=== PATIENT | female | born 1930 | race Caucasian/White ===

== ENCOUNTER 2018-05-11 07:08 | Emergency (ER) | payer MEDICARE, MEDICAID ==
--- OUTSIDE RECORDS SUMMARY | 2018-05-11 07:18 | XMS REPORT | Continuity of Care Document ---
:1930 External Reference #:[id number] Author Name Caron Neal Care Team Providers Name Role Phone Christina Pérez RPAC Care Team Information Crystal Calibrator Unavailable Christina Pérez RPAC Primary Care Physician Unavailable Payers Date Identification Numbers Payment Provider Subscriber Policy Number: [id number] Medicare Jenna Franco PayID: [id number] [address] [place] [address] Policy Number: [id number] Medicaid Jenna Franco Group Name: 2 1 [address] PayID: [id number] [place] [address] Advance Directives Description No Information Available Problems Date Description Provider Status Onset: 09/08/2010 Mitral valve disorder Constantino Burleson M.D., [facility]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 Onset: 10/21/2012 Dyspnea Constantino Burleson M.D., Active FAC Onset: 10/01/2013 Malaise and fatigue Constantino Burleson M.D., Active [facility] Onset: 04/28/2015 Essential hypertension Kae 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, 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, 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 Onset: 12/28/2016 Osteoporosis Christina Pérez RPAC Active Onset: 12/28/2016 Hyperlipidemia Christina Pérez RPAC Active Onset: 12/28/2016 Degenerative joint disease Christina Pérez RPAC Active involving multiple joints Note: cervical/lumbar spine Onset: 12/28/2016 Polyp of colon Christina Pérez RPAC Active Note: tubular adenoma 2012 Onset: 05/21/2017 Pruritus of skin Christina Pérez RPAC Active Onset: 08/28/2017 Neck pain Christina Pérez RPAC Active Onset: 02/21/2018 Chest pain Constantino Burleson M.D., [facility] Active Onset: 02/21/2018 Bradycardia, unspecified Constantino Burleson M.D., [facility] Active Onset: 09/08/2010 Nausea and vomiting Alfredito Cannon MD, PhD Resolved Resolved: 12/28/2016 Onset: 12/30/2012 Cough Constantino Burleson M.D., [facility] Resolved Resolved: 12/28/2016 Family History Date Family Member(s) Observation Comments General No known family history of CAD. 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 every day Hydrocortisone 05/22/19 Active Cream 2.5% 30gm thin L29.9 Davies, 18 layer Jose Luis, three-fou M.D. r times a day for itchy rash Proair HFA 01/30/20 Active Aerosol 108(90Bas 36uni 1-2 Davies, 17 e) ts inhalatio Jose Luis, mcg/Act ns every M.D. 4 hours as needed Losartan 12/06/19 Active Tablets 50mg 90tab take one I10 Davidenko Potassium 16 s tablet by Constantino M.D., every day [facility] Hydrochlorothiaz 10/24/19 Active Tablets 25mg 90tab take one Davidenko clay 15 s tablet by , Constantino Frances M.D., every day [facility] Docusate Sodium Active Capsules 100mg 270ca Take 2-3 Davies, 00 ps Capsules Jose Luis, By Mouth M.D. Once Daily With Fiber Ceral Alendronate Active Tablets 70mg 4tabs 1 tab Davies, Sodium 00 every Jose Luis, week in M.D. in the morning wth 8 oz water Aspir-Low Active Tablets DR 81mg 1 po qd Unknown 00 Calcium 500/D Active Tablets 500-200mg 180ta 1 by Davies, 00 -Unit bs mouth Jose Luis, twice a M.D. day Advil Active Capsules 200mg 1 cap by Unknown 00 mouth with meals, may take 4 per day Vitamin D3 Active Capsules 2000Unit 1 by Unknown 00 mouth every day Vesicare Active Tablets 5mg 90tab take one Davies, 00 s tablet by Jose Luis mouth M.D. every day Omeprazole Active Capsules 20mg 90cap Take One Davies, 00 DR s Capsule Jose Luis, By Mouth M.D. Every Day Atorvastatin Active Tablets 20mg 90tab take one Davies, Calcium 00 s tablet by lul Amaya M.D. every day U27-Bxxker Active Chewtabs 1mg 1 tab by Unknown 00 mouth every day wc Amlodipine 07/13/19 Hx Tablets 10mg 1/2 by Sarah Beth Besylate 18 - mouth , Constantino 08/29/19 every day M.Kalli, 18 FACC Diphenhydramine 05/22/19 Hx Capsules 25mg 30cap take one L29.9 Davies, HCL 18 - s capsule Jose Luis, 08/29/19 by mouth M.DShree 18 every night before bedtime to decrease night time itching Rollator 01/04/20 Hx Misc Walker 1unit For daily Davies, 17 - W/Brake & s use....dx Jose Luis, 02/01/20 Seat : M 47.9 M.DShree 17 Physical Therapy 12/30/19 Hx Continue M47.9 Davies, 17 - PT. 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, unsteady gait Hydrochlorothiaz 10/22/19 Hx Tablets 25mg 90tab 1 tab by Sarah Beth clay 13 - s mouth , Constantino 10/24/19 every day M., M.D., 15 FACC Zofran Odt 09/09/19 Hx Tablets 4mg 30tab po prn Cannon, 11 - Dispers s Alfredito Rust, Unknown MD, PhD Pravastatin Hx Tablets 80mg 90tab 1 po qd Unknown Sodium - s Unknown Acetaminophen Hx Capsules 500mg 2 po tid Unknown 00 - prn Unknown Naproxen Sodium Hx Tablets 550mg 1 po bid Unknown 00 - prn Unknown Amlodipine Hx Tablets 10mg 90tab 1 by Samson, Besylate s mouth Jose Luis, 07/13/19 every day MGonsalo 18 Albuterol Hx Nebulizer 1.25mg/3M 2 puffs Unknown Sulfate 00 - L q4h prn Unknown Alendronate Hx Tablets 35mg 1 po Unknown Sodium 00 - qweek Unknown Hydrochlorothiaz Hx Tablets 12.5mg 30tab 1 po qd Unknown clay 00 - s 10/22/19 13 Spiriva Hx Capsules 18mcg 1 po qd Unknown Handihaler 00 - Unknown Vitamin D Hx Capsules 1000Unit 60cap 1 po qd Unknown - s Unknown Enablex Hx Tablets ER 15mg 1 po qd Unknown 00 - 24HR Unknown Oysco 500+D Hx Tablets 500-200mg po qd Unknown 00 - -Unit Unknown Nexium Hx Capsules 40mg 90cap 1 po qd Unknown - s Unknown Terbinafine HCL Hx Tablets 250mg po qday Unknown 00 - Unknown Oysco 500+D Hx Chewtabs 500-600mg 1 qd Unknown 00 - -Unit Unknown Vitamin D3 Hx Capsules 1000Units 2po every , day Jose Luis, 01/30/20 Kalli 17 Ventolin HFA Hx Aerosol 108(90Bas prn Unknown - e) Unknown mcg/Act Proair HFA Hx Aerosol 108(90Bas 3unit 2 puffs Unknown - e) s every 4 12/30/19 mcg/Act hours as 17 needed, rare use with illness Naproxen DR Hx Tablets DR 500mg 1 by Unknown 00 - mouth 12/30/19 once a 17 day with food. Immunizations CPT Code Status Date Vaccine Lot # U-Flu Given 11/07/2017 Influenza,Unspecified Vital Signs Date Vital Result Comment 02/21/2018 11:50am BP Systolic Sitting Left Arm 142 mmHg BP Diastolic Sitting Left Arm 82 mmHg Heart Rate 62 /min Respiratory Rate 18 /min Weight 128.00 lb O2 % BldC Oximetry 97 % Ora 01/14/2018 2:06pm BP Systolic Sitting Right Arm 138 mmHg BP Diastolic Sitting Right Arm 72 mmHg Heart Rate 57 /min Respiratory Rate 18 /min Weight 126.00 lb O2 % BldC Oximetry 96 % Ora 12/03/2017 9:45am BP Systolic 142 mmHg BP Diastolic 72 mmHg Body Temperature 97.2 F Heart Rate 108 /min Respiratory Rate 20 /min Weight 126.00 lb O2 % BldC Oximetry 96 % Ra Pain Level 9 neck and back 08/28/2017 10:29am BP Systolic Sitting Right Arm 158 mmHg BP Diastolic Sitting Right Arm 68 mmHg Body Temperature 98.5 F Heart Rate 55 /min Respiratory Rate 18 /min Height 66 inches 5'6" Weight 125.00 lb BMI (Body Mass Index) 20.2 kg/m2 BSA (Body Surface Area) 1.64 m2 Bayard body weight in kilograms 59 kg O2 % BldC Oximetry 98 % ra 07/12/2017 11:24am BP Systolic Sitting Left Arm 120 mmHg BP Diastolic Sitting Left Arm 64 mmHg Heart Rate 64 /min Respiratory Rate 14 /min Height 66 inches 5'6" Weight 118.00 lb BMI (Body Mass Index) 19.0 kg/m2 BSA (Body Surface Area) 1.60 m2 Bayard body weight in kilograms 59 kg 05/21/2017 3:30pm BP Systolic Sitting Right Arm 122 mmHg BP Diastolic Sitting Right Arm 64 mmHg Heart Rate 58 /min Height 66 inches 5'6" Weight 121.00 lb BMI (Body Mass Index) 19.5 kg/m2 BSA (Body Surface Area) 1.62 m2 Bayard body weight in kilograms 59 kg O2 % BldC Oximetry 97 % ra 01/29/2017 2:14pm BP Systolic 162 mmHg BP Diastolic 62 mmHg Heart Rate 69 /min Respiratory Rate 12 /min Height 66 inches 5'6" Weight 128.12 lb BMI (Body Mass Index) 20.7 kg/m2 BSA (Body Surface Area) 1.65 m2 Bayard body weight in kilograms 59 kg O2 % BldC Oximetry 82 % 01/10/2017 1:35pm BP Systolic Sitting Left Arm 146 mmHg BP Diastolic Sitting Left Arm 82 mmHg Heart Rate 80 /min Respiratory Rate 16 /min Height 66 inches 5'6" Weight 121.00 lb BMI (Body Mass Index) 19.5 kg/m2 BSA (Body Surface Area) 1.62 m2 Bayard body weight in kilograms 59 kg 12/29/2016 1:46pm BP Systolic Sitting Right Arm 134 mmHg BP Diastolic Sitting Right Arm 60 mmHg Heart Rate 58 /min Respiratory Rate 18 /min Height 66 inches 5'6" Weight 125.00 lb BMI (Body Mass Index) 20.2 kg/m2 BSA (Body Surface Area) 1.64 m2 Bayard body weight in kilograms 59 kg O2 % BldC Oximetry 96 % ra 07/06/2016 3:19pm BP Systolic Sitting Left Arm 140 mmHg BP Diastolic Sitting Left Arm 70 mmHg Heart Rate 60 /min Respiratory Rate 18 /min Height 66 inches 5'6" Weight 127.00 lb BMI (Body Mass Index) 20.5 kg/m2 BSA (Body Surface Area) 1.65 m2 Bayard body weight in kilograms 59 kg 01/03/2016 2:33pm BP Systolic Sitting Left Arm 156 mmHg BP Diastolic Sitting Left Arm 58 mmHg Heart Rate 66 /min Respiratory Rate 16 /min Height 66 inches 5'6" Weight 127.00 lb BMI (Body Mass Index) 20.5 kg/m2 BSA (Body Surface Area) 1.65 m2 12/06/2015 8:04am BP Systolic Sitting Left Arm 182 mmHg BP Diastolic Sitting Left Arm 74 mmHg Heart Rate 56 /min Height 66 inches 5'6" Weight 126.00 lb BMI (Body Mass Index) 20.3 kg/m2 BSA (Body Surface Area) 1.64 m2 06/03/2015 2:47pm BP Systolic Sitting Resting Right Arm 150 mmHg BP Diastolic Sitting Resting Right Arm 64 mmHg Heart Rate 62 /min Height 66 inches 5'6" Weight 124.00 lb BMI (Body Mass Index) 20.0 kg/m2 BSA (Body Surface Area) 1.63 m2 04/28/2015 2:50pm BP Systolic Sitting Right Arm 132 mmHg BP Diastolic Sitting Right Arm 70 mmHg Heart Rate 60 /min Respiratory Rate 16 /min Height 63.5 inches 5'3.50" Weight 128.00 lb BMI (Body Mass Index) 22.3 kg/m2 BSA (Body Surface Area) 1.61 m2 10/23/2014 1:14pm BP Systolic 154 mmHg BP Diastolic 76 mmHg Heart Rate 66 /min Respiratory Rate 18 /min Height 63.5 inches 5'3.50" Weight 124.12 lb BMI (Body Mass Index) 21.6 kg/m2 BSA (Body Surface Area) 1.59 m2 04/16/2014 3:09pm BP Systolic Sitting Right Arm 170 mmHg BP Diastolic Sitting Right Arm 70 mmHg Heart Rate 58 /min Respiratory Rate 20 /min Height 63.5 inches 5'3.50" Weight 131.00 lb BMI (Body Mass Index) 22.8 kg/m2 BSA (Body Surface Area) 1.62 m2 10/01/2013 10:08am BP Systolic Sitting Right Arm 124 mmHg BP Diastolic Sitting Right Arm 60 mmHg Heart Rate 64 /min Respiratory Rate 16 /min Height 63.5 inches 5'3.50" Weight 134.00 lb BMI (Body Mass Index) 23.4 kg/m2 BSA (Body Surface Area) 1.64 m2 07/01/2013 3:50pm BP Systolic Sitting Left Arm 144 mmHg BP Diastolic Sitting Left Arm 78 mmHg Heart Rate 66 /min Respiratory Rate 16 /min Height 63.5 inches 5'3.50" Weight 133.00 lb BMI (Body Mass Index) 23.2 kg/m2 BSA (Body Surface Area) 1.64 m2 12/30/2012 3:08pm BP Systolic Sitting Right Arm 132 mmHg BP Diastolic Sitting Right Arm 88 mmHg Heart Rate 60 /min Respiratory Rate 16 /min Height 63.5 inches 5'3.50" Weight 135.00 lb BMI (Body Mass Index) 23.5 kg/m2 BSA (Body Surface Area) 1.65 m2 10/21/2012 2:30pm BP Systolic Sitting Right Arm 184 mmHg BP Diastolic Sitting Right Arm 84 mmHg Heart Rate 57 /min Respiratory Rate 16 /min Height 63.5 inches 5'3.50" Weight 131.00 lb BMI (Body Mass Index) 22.8 kg/m2 BSA (Body Surface Area) 1.62 m2 09/13/2011 2:14pm BP Systolic Sitting Right Arm 142 mmHg BP Diastolic Sitting Right Arm 68 mmHg Heart Rate 64 /min Respiratory Rate 16 /min Height 63.5 inches 5'3.50" Weight 129.00 lb BMI (Body Mass Index) 22.5 kg/m2 09/13/2010 10:43am BP Systolic Sitting Left Arm 148 mmHg BP Diastolic Sitting Left Arm 84 mmHg Heart Rate 60 /min Respiratory Rate 14 /min Height 63.5 inches 5'3.50" Weight 132.00 lb BMI (Body Mass Index) 23.0 kg/m2 09/08/2010 10:54am BP Systolic Sitting Right Arm 196 mmHg BP Diastolic Sitting Right Arm 90 mmHg Heart Rate 68 /min regular Respiratory Rate 16 /min Height 63.5 inches 5'3.50" Weight 129.00 lb BMI (Body Mass Index) 22.5 kg/m2 06/17/2010 10:06am BP Systolic Sitting Left Arm 142 mmHg BP Diastolic Sitting Left Arm 70 mmHg Heart Rate 68 /min Irregular Respiratory Rate 16 /min Height 63.5 inches 5'3.50" Weight 134.00 lb BMI (Body Mass Index) 23.4 kg/m2 Results Test Date Facility Test Result H/L Range Note CBS 05/22/2017 [facility] White Blood 9.1 K/uL N 3.1-10.7 1 W/Automated [address] [place], [place] [id number] [phone] Red Blood Count 4.09 M/uL N 3.90-5.40 Hemoglobin 12.7 gm/dL N 11.6-15.8 Hematocrit 37.9 % N 36.0-46.1 Mean Cell Volume 92.7 fl N 80.9-99.0 Mean Corpuscular HGB 31.1 pg N 25.9-32.7 Mean Corpuscular HGB Conc 33.5 g/dL N 30.8-34.3 Platelet Count 202 K/uL N 155-360 Red Cell Distri Width SD 43.5 fl N 3-47 Red Cell Distri Width %CV 13.2 % N 11.7-14.4 Mean Platelet Volume 13.0 fL High 8.9-12.4 Neut% 49.3 % N 40.4-72.8 Lymph % 42.3 % High 20.0-42.0 Bell % 6.9 % N 4.3-13.2 Eo% 1.3 % N 0.0-6.6 Bas% 0.2 % N 0.0-1.1 Neut# 4.48 K/uL N 1.8-7.0 Lymph # 3.85 K/uL N 1.0-4.0 Bell # 0.63 K/uL N 0.3-0.9 Eos # 0.12 K/uL N 0.0-0.5 Baso # 0.02 K/uL N 0.0-0.1 Comprehensive Metabolic 05/21/2017 [facility] Glucose 89 mg/dL N 74-106 [address] [place] [address] [phone] BUN 19 mg/dL High 7-18 Creatinine 0.7 mg/dL N 0.6-1.3 Glom Filtration Rate, Estimate >60 mL/min >60 If >60 mL/min >60 3 BUN/Creat 27.1 ratio Sodium 140 mmol/L N 136-145 Potassium 4.4 mmol/L N 3.5-5.1 Chloride 105 mmol/L N 98-107 Carbon Dioxide 25 mmol/L N 21-32 Anion Gap 10 mEq/L N 8-16 Calcium 9.3 mg/dL N 8.5-10.1 Total Protein 7.8 g/dL N 6.4-8.2 Albumin 4.0 g/dL N 3.4-5.0 Globulin 3.8 g/dL N 1.9-4.3 Alb/Glob 1.1 ratio Bilirubin,Total 0.8 mg/dL N 0.2-1.0 Sgot/Ast 23 U/L N 15-37 SGPT/Alt 19 U/L N 12-78 Alkaline Phosphatase 55 U/L N 45-117 LDL Cholesterol Profile 05/21/2017 [facility] Cholesterol 149 mg/dL <[address] [place] [address] [phone] Triglycerides 90 mg/dL <150 5 HDL Cholesterol 59 mg/dL >40 6 LDL-Cholesterol 72 mg/dL < 100 7 Laboratory test 05/21/2017 [facility] Vitamin 42.0 30.0-100.0 [address] D,25-Hydroxy ng/[place] [address] [phone] Laboratory test 02/24/2014 [facility] Microalb/Creat See Note [address] Ratio,[place] [address] [phone] CBC 02/24/2014 [facility] White Blood 5.7 K/uL 3.1-10.[address] [place] [address] [phone] Red Blood Count 4.21 M/uL 3.90-5.40 Hemoglobin 12.8 gm/dL 11.6-15.8 Hematocrit 39.0 % 36.0-46.1 Mean Cell Volume 92.6 fl 80.9-99.0 Mean Corpuscular HGB 30.4 pg 25.9-32.7 Mean Corpuscular HGB Conc 32.8 g/dL 30.8-34.3 Platelet Count 189 K/uL 155-360 Red Cell Distri Width %CV 12.8 % 11.7-14.4 Mean Platelet Volume 12.8 fL High 8.9-12.4 LDL Cholesterol 02/24/2014 [facility] Cholesterol 136 mg/dL < 200 10 Profile [address] [place] [place] [address] [phone] Triglycerides 58 mg/dL < 150 11 HDL Cholesterol 58 mg/dL > 40 12 LDL-Cholesterol 66 mg/dL < 100 13 Comprehensive Metabolic 02/24/2014 [facility] Glucose 90 mg/dL 74-106 Panel [address] [place] [address] [phone] BUN 15 mg/dL 7-18 Creatinine 1.1 mg/dL 0.6-1.3 Glom Filtration Rate, Estimate 51 mL/min >60 If >60 mL/min >60 14 BUN/Creat 13.6 ratio Sodium 139 mmol/L 136-145 Potassium 4.4 mmol/L 3.5-5.1 Chloride 104 mmol/L 98-107 Carbon Dioxide 30 mmol/L 21-32 Anion Gap 9 mEq/L 8-16 Calcium 9.5 mg/dL 8.5-10.1 Total Protein 7.9 g/dL 6.4-8.2 Albumin 3.9 g/dL 3.4-5.0 Globulin 4.0 g/dL 1.9-4.3 Alb/Glob 1.0 ratio Bilirubin,Total 0.8 mg/dL 0.2-1.0 Sgot/Ast 18 U/L 15-37 SGPT/Alt 19 U/L 12-78 Alkaline Phosphatase 64 U/L 45-117 1 I10,L29.9,E78.5, 2 I10 L29.9 E78.5 3 Note: Persistent reduction for 3 months or more in an eGFR <60 mL/min/1.73 m2 defines CKD. Patients with eGFR values >/=60 mL/min/1.73 m2 may also have CKD if evidence of persistent proteinuria is present. The original MDRD equation for estimated GFR is not valid for patients less than 18 years of age. Additional information may be found at www.kdoqi.org. 4 Reference Guidelines*: Desirable: ........... < 200 mg/dL Borderline High: ..... 200-239 mg/dL High: ................ >=240 mg/dL * The National Cholesterol Education Program (NCEP) 5 Reference Guidelines*: Normal: ............. < 150 mg/dL Borderline High: .... 150-199 mg/dL High: ............... 200-499 mg/dL Very High: .......... > 500 mg/dL * Source: National Cholesterol Education Program (NCEP) 6 Reference Guidelines*: Low HDL: ..... < 40 mg/dL Normal: ..... 40-60 mg/dL Desirable: ... > 60 mg/dL *The National Cholesterol Education Program(NCEP) 7 Reference Guidelines*: Optimal:........... <100 mg/dL Near Optimal....... 100-129 mg/dL Borderline High.... 130-159 mg/dL High............... 160-189 mg/dL Very High.......... >=190 mg/dL * Source: National Cholesterol Education Program (NCEP) 8 Vitamin D deficiency has been defined by the [place] of [employer] and an Endocrine Society practice guideline as a level of serum 25-OH vitamin D less than 20 ng/mL (1,2). The Endocrine Society went on to further define vitamin D insufficiency as a level between 21 and 29 ng/mL (2). 1. IOM ([place] of [employer]). 2010. Dietary reference intakes for calcium and D. [place]: The National Academies Press. 2. Natasha MF, Gavin KANG, Avila CEDENO, et al. Evaluation, treatment, and prevention of vitamin D deficiency: an Endocrine Society clinical practice guideline. JCEM. 2010; 96(7):1911-30. Performed at: RN - [facility] [address] [id number] Vegetable Loader: Mary Rene MD, Phone: [phone] PATIENT UNABLE TO VOID WILL BRING IN SPECIMAN AT A LATER TIME 10 Reference Guidelines*: Desirable: ........... < 200 mg/dL Borderline High: ..... 200-239 mg/dL High: ................ >=240 mg/dL * The National Cholesterol Education Program (NCEP) 11 Reference Guidelines*: Normal: ............. < 150 mg/dL Borderline High: .... 150-199 mg/dL High: ............... 200-499 mg/dL Very High: .......... > 500 mg/dL * Source: National Cholesterol Education Program (NCEP) 12 Reference Guidelines*: Low HDL: ..... < 40 mg/dL Normal: ..... 40-60 mg/dL Desirable: ... > 60 mg/dL *The National Cholesterol Education Program(NCEP) 13 Reference Guidelines*: Optimal:........... <100 mg/dL Near Optimal....... 100-129 mg/dL Borderline High.... 130-159 mg/dL High............... 160-189 mg/dL Very High.......... >=190 mg/dL * Source: National Cholesterol Education Program (NCEP) 14 Note: Persistent reduction for 3 months or more in an eGFR <60 mL/min/1.73 m2 defines CKD. Patients with eGFR values >/=60 mL/min/1.73 m2 may also have CKD if evidence of persistent proteinuria is present. The original MDRD equation for estimated GFR is not valid for patients less than 18 years of age. Additional information may be found at www.kdoqi.org. Procedures Date Code Description Status 01/29/2018 81886 Stress Test Interpre And Report Only Completed 01/29/2018 90178 Stress Test Physician Super Only Completed 01/29/2018 67032 Myocardial Imaging Tomographic Multiple Study AT Rest Completed Or Stress 01/24/2018 46272 Event Monitor Inter/Review Only Completed 01/14/2018 86873 EKG-Tracing And Report Completed 01/02/2018 66652 Echocardiogram Complete Completed 07/12/2017 19982 EKG-Tracing And Report Completed 01/22/2017 06393 Echocardiogram Complete Completed 06/01/2015 39675 Echocardiogram Complete Completed 04/28/2015 72373 EKG-Tracing And Report Completed 05/07/2014 [id number] Bone Mineral Density Test Completed 05/07/2014 [id number] Mammogram Completed 04/16/2014 45202 EKG-Tracing And Report Completed 10/01/2013 80069 Echocardiogram Complete Completed 01/02/2013 17628 Echocardiogram Complete Completed 10/21/2012 38778 EKG-Tracing And Report Completed 05/27/2012 [id number] Colonoscopy Completed 09/13/2011 47528 EKG-Tracing And Report Completed 09/07/2010 65273 Doppler ECHO Color Flow Mapping Completed 09/07/2010 92890 Doppler Echocardiogram Complete Completed 09/07/2010 70740 Transesophageal Echocardiogram Completed 06/17/2010 56048 EKG-Tracing And Report Completed 06/17/2010 46779 EKG-Tracing And Report Completed 05/03/2010 91301 Echocardiogram Complete Completed Encounters Type Date Location Provider Dx Diagnosis Office Visit 02/21/2018 Cardiology Office Constantino Burleson R07.9 Chest pain, 11:40a MRuby Swann., FACC unspecified R00.1 Bradycardia, unspecified I34.0 Nonrheumatic mitral (valve) insufficiency R06.02 Shortness of breath Office Visit 01/14/2018 2:00p Cardiology Office Johan R07.9 Chest pain, Marlyss B., PA unspecified R00.1 Bradycardia, unspecified I34.0 Nonrheumatic mitral (valve) insufficiency I27.29 Other secondary pulmonary hypertension E78.5 Hyperlipidemia, unspecified I10 Essential (primary) hypertension Office Visit 12/03/2017 9:30a Primary Care [place]ia, I10 Essential ( primary) Office Christina [facility] hypertension M46.1 Sacroiliitis, not elsewhere classified Office Visit 08/28/2017 10:30a Primary Care [place]ia, Christina, M54.2 Cervicalgia Office RPAC I10 Essential (primary) hypertension R53.83 Other fatigue Office Visit 07/12/2017 Cardiology Constantino Burleson I34.0 Nonrheumatic mitral 11:20a Office Kalli Frances, FACC (valve) insufficiency I10 Essential (primary) hypertension E78.5 Hyperlipidemia, unspecified R53.83 Other fatigue Office Visit 05/21/2017 2:45p Primary Care [place], L29.9 Pruritus, Office [facility] unspecified I10 Essential (primary) hypertension E78.5 Hyperlipidemia, unspecified W23.1xxD Caught, crush, jammed, or pinched betw stationry obj, subs S67.193D Crushing injury of left middle finger, subsequent encounter Office Visit 01/29/2017 2:15p Primary Care [place]ia, K59.00 Constipation, Office Christina [facility] unspecified M54.31 Sciatica, right side I34.0 Nonrheumatic mitral (valve) insufficiency I10 Essential (primary) hypertension E78.5 Hyperlipidemia, unspecified Office Visit 01/10/2017 1:30p Cardiology Office Johan, I34.0 Nonrheumatic mitral Marlyss B., (valve) PA insufficiency I10 Essential (primary) hypertension E78.5 Hyperlipidemia, unspecified Office Visit 12/29/2016 2:00p Primary Care [place], M47.9 Spondylosis, Office Christina, [facility] unspecified K59.00 Constipation, unspecified Office Visit 07/06/2016 Cardiology Constantino Burleson I34.0 Nonrheumatic mitral 3:00p Office Kalli Frances, FACC (valve) insufficiency I10 Essential (primary) hypertension Office Visit 01/03/2016 2:20p Cardiology Office Kae Pantoja I10 Essential Jada, ELISE, (primary) 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 hypertension I34.0 Nonrheumatic mitral (valve) insufficiency E78.5 Hyperlipidemia, unspecified Office Visit 12/06/2015 8:00a Cardiology Office Kae Pantoja I10 Essential Jada, ELISE, (primary) 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 hypertension I34.0 Nonrheumatic mitral (valve) insufficiency Office Visit 06/03/2015 Cardiology Constantino Burleson I34.0 Nonrheumatic mitral 3:00p Office M., MLeisa., FACC (valve) insufficiency I10 Essential (primary) hypertension Office Visit 04/28/2015 2:40p Cardiology Kae Pantoja R60.9 Edema, Office ELISE Elias, unspecified 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 I34.0 Nonrheumatic mitral (valve) insufficiency I10 Essential (primary) hypertension Office Visit 10/23/2014 1:20p Cardiology Office Constantino Burleson 424.0 Mitral Valve M., M.D., FACC Disorder 780.79 Malaise And Fatigue Other 401.1 Hypertension Benign 786.2 Cough Office Visit 04/16/2014 2:40p Cardiology Office Kae Pantoja 424.0 Mitral Valve ELISE Elias, Disorder 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 401.1 Hypertension Benign Office Visit 10/01/2013 9:30a Cardiology Office Constantino Burleson 424.0 Mitral Valve M., M.DShree, FACC Disorder 401.1 Hypertension Benign 780.79 Malaise And Fatigue Other Office Visit 07/01/2013 3:40p Cardiology Office Kae Pantoja 424.0 Mitral Valve ELISE Elias, Disorder 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 401.1 Hypertension Benign 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 Office Visit 12/30/2012 2:40p Cardiology Office Constantino Burleson 424.0 Mitral Valve M., M.D., FACC Disorder 401.1 Hypertension Benign 786.2 Cough Office Visit 10/21/2012 2:20p Cardiology Office Constantino Burleson 424.0 Mitral Valve M., M.D., FACC Disorder 401.1 Hypertension Benign 786.05 Shortness Of Breath Office Visit 09/13/2011 2:00p Cardiology Office Constantino Burleson 424.0 Mitral Valve M., M.D., FACC Disorder 401.1 Hypertension Benign Office Visit 09/13/2010 10:40a Cardiology Office Constantino Burleson 787.01 Nausea Jean Frances M.D., [facility] Vomiting 424.0 Mitral Valve Disorder 401.1 Hypertension Benign 786.05 Shortness Of Breath Office Visit 09/08/2010 10:00a Cardiology Office Alfredito Cannon 787.01 Nausea Jean Rust MD, PhD Vomiting Office Visit 06/17/2010 10:00a Cardiology Office Kae Pantoja 424.0 Mitral Valve Simonetta, Disorder 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, 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 401.1 Hypertension Benign 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 786.05 Shortness Of Breath Office Visit 07/04/2007 Cardiology Constantino Burleson 401.1 Hypertension 11:00a Office Kalli Frances, [facility] Benign Office Visit 06/18/2007 Cardiology Constantino Burleson 424.0 Mitral Valve 11:00a Office Kalli Frances, [facility] Disorder 401.1 Hypertension Benign 794.31 Electrocardiogram (ECG) (EKG) Abnormal Plan of Treatment Future Appointment(s):08/22/2018 8:40 am - Constantino Burleson M.D., [facility] at Cardiology [id number]/21/2018 - Constantino Burleson M.D., FACCR07.9 Chest pain, unspecifiedComments:No recurrence. The stress test was negative for ischemia. No further testing is pquurixzdA73.1 Bradycardia, unspecifiedComments:She did not show significant bradycardia but there was a relatively poor adjustment of HR to activity. Yet, her quality of life is good. I don't see the need for pacing at this time. If her tolerance to activity worsens or she develops dizziness she will contact me.I34.0 Nonrheumatic mitral (valve) insufficiencyComments:She has moderate to severe mitral regurgitation with mild stenosis and moderate pulmonary hypertension. She has no CHF symptoms.Will svixfnS67.02 Shortness of breathComments:She has manageable FERNANDEZ which seems to be stable according to her as well as her daughter. Will not make changes. She will be seen in 6 months.AllFollow up:Follow up visit in 6 months.
--- OUTSIDE RECORDS SUMMARY | 2018-05-11 07:18 | XMS REPORT | Continuity of Care Document ---
:1930 External Reference #:[id number] Author Name Caron Neal Care Team Providers Name Role Phone Christina Pérez RPAC Care Team Information Portal Developer Unavailable Christina Pérez RPAC Primary Care Physician Unavailable Payers Date Identification Numbers Payment Provider Subscriber Policy Number: [id number] Medicare Jenna Franco PayID: [id number] [address] [place] [address] Policy Number: [id number] Medicaid Jenna Franco Group Name: 2 1 [address] PayID: [id number] [place] [address] Advance Directives Description No Information Available Problems Date Description Provider Status Onset: 09/08/2010 Mitral valve disorder Constantino Burleson M.D., [facility]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 Onset: 10/21/2012 Dyspnea Constantino Burleson M.D., Active FAC Onset: 10/01/2013 Malaise and fatigue Constantino Burleson M.D., Active [facility] Onset: 04/28/2015 Essential hypertension Kae Pantoja, MSN, Active 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 Onset: 12/28/2016 Osteoporosis Christina Pérez RPAC Active [...] Onset: 02/21/2018 Chest pain Constantino Burleson M.D., [facility] Active Onset: 02/21/2018 Bradycardia, unspecified Constantino Burleson M.D., [facility] Active Onset: 09/08/2010 Nausea and vomiting Alfredito Cannon MD, PhD Resolved Resolved: 12/28/2016 Onset: 12/30/2012 Cough Constantino Burleson M.D., [facility] Resolved Resolved: 12/28/2016 Family History Date Family [...] s tablet by Constantino M.D., every day [facility] Hydrochlorothiaz 10/24/19 Active Tablets 25mg 90tab take one Davidenko clay 15 s tablet by , Constantino Frances M.D., every day [facility] Docusate Sodium Active Capsules 100mg 270ca Take [...] tablet by lul Amaya M.D. every day [id number] Active Chewtabs 1mg 1 tab by Unknown [...] kg/m2 BSA (Body Surface Area) 1.64 m2 [place] body weight in kilograms 59 kg O2 % BldC Oximetry 98 % ra 07/12/2017 11:24am BP Systolic Sitting Left Arm 120 mmHg BP Diastolic Sitting Left Arm 64 mmHg Heart Rate 64 /min Respiratory Rate 14 /min Height 66 inches 5'6" Weight 118.00 lb BMI (Body Mass Index) 19.0 kg/m2 BSA (Body Surface Area) 1.60 m2 [place] body weight in kilograms 59 kg 05/21/2017 3:30pm BP Systolic Sitting Right Arm 122 mmHg BP Diastolic Sitting Right Arm 64 mmHg Heart Rate 58 /min Height 66 inches 5'6" Weight 121.00 lb BMI (Body Mass Index) 19.5 kg/m2 BSA (Body Surface Area) 1.62 m2 [place] body weight in kilograms 59 kg O2 % BldC Oximetry 97 % ra 01/29/2017 2:14pm BP Systolic 162 mmHg BP Diastolic 62 mmHg Heart Rate 69 /min Respiratory Rate 12 /min Height 66 inches 5'6" Weight 128.12 lb BMI (Body Mass Index) 20.7 kg/m2 BSA (Body Surface Area) 1.65 m2 [place] body weight in kilograms 59 kg O2 % BldC Oximetry 82 % 01/10/2017 1:35pm BP Systolic Sitting Left Arm 146 mmHg BP Diastolic Sitting Left Arm 82 mmHg Heart Rate 80 /min Respiratory Rate 16 /min Height 66 inches 5'6" Weight 121.00 lb BMI (Body Mass Index) 19.5 kg/m2 BSA (Body Surface Area) 1.62 m2 [place] body weight in kilograms 59 kg 12/29/2016 1:46pm BP Systolic Sitting Right Arm 134 mmHg BP Diastolic Sitting Right Arm 60 mmHg Heart Rate 58 /min Respiratory Rate 18 /min Height 66 inches 5'6" Weight 125.00 lb BMI (Body Mass Index) 20.2 kg/m2 BSA (Body Surface Area) 1.64 m2 [place] body weight in kilograms 59 kg O2 % BldC Oximetry 96 % ra 07/06/2016 3:19pm BP Systolic Sitting Left Arm 140 mmHg BP Diastolic Sitting Left Arm 70 mmHg Heart Rate 60 /min Respiratory Rate 18 /min Height 66 inches 5'6" Weight 127.00 lb BMI (Body Mass Index) 20.5 kg/m2 BSA (Body Surface Area) 1.65 m2 [place] body weight in kilograms 59 kg 01/03/2016 [...] Test Result H/L Range Note CBS 05/22/2017 [facility] White Blood 9.1 K/uL N 3.1-10.7 1 W/Automated [address] [place], [place] [id number] [phone] Red Blood Count 4.09 M/uL N 3.90-5.40 [...] 40.4-72.8 Lymph % 42.3 % High 20.0-42.0 [place] % 6.9 % N 4.3-13.2 Eo% 1.3 % N 0.0-6.6 Bas% 0.2 % N 0.0-1.1 Neut# 4.48 K/uL N 1.8-7.0 Lymph # 3.85 K/uL N 1.0-4.0 Marshall # 0.63 K/uL N 0.3-0.9 Eos # 0.12 K/uL N 0.0-0.5 Baso # 0.02 K/uL N 0.0-0.1 Comprehensive Metabolic 05/21/2017 [facility] Glucose 89 mg/dL N 74-[address] [place] [address] [phone] BUN 19 mg/dL High 7-18 Creatinine 0.7 [...] U/L N 45-117 LDL Cholesterol Profile 05/21/2017 [facility] Cholesterol 149 mg/dL <[address] [place] [address] [phone] Triglycerides 90 mg/dL <150 5 HDL Cholesterol 59 mg/dL >40 6 LDL-Cholesterol 72 mg/dL < 100 7 Laboratory test 05/21/2017 [facility] Vitamin 42.0 30.0-100.0 [address] D,25-Hydroxy ng/[place] [address] [phone] Laboratory test 02/24/2014 [facility] Microalb/Creat See Note [address] Ratio,[place] [address] [phone] CBC 02/24/2014 [facility] White Blood 5.7 K/uL 3.1-10.[address] [place] [address] [phone] Red Blood Count 4.21 M/uL 3.90-5.40 Hemoglobin 12.8 gm/dL 11.6-15.8 Hematocrit 39.0 % 36.0-46.1 Mean Cell Volume 92.6 fl 80.9-99.0 Mean Corpuscular HGB 30.4 pg 25.9-32.7 Mean Corpuscular HGB Conc 32.8 g/dL 30.8-34.3 Platelet Count 189 K/uL 155-360 Red Cell Distri Width %CV 12.8 % 11.7-14.4 Mean Platelet Volume 12.8 fL High 8.9-12.4 LDL Cholesterol 02/24/2014 [facility] Cholesterol 136 mg/dL < 200 [address] [place] [address] [phone] Triglycerides 58 mg/dL < 150 11 HDL Cholesterol 58 mg/dL > 40 12 LDL-Cholesterol 66 mg/dL < 100 13 Comprehensive Metabolic 02/24/2014 [facility] Glucose 90 mg/dL 74-106 Panel [address] [place] [address] [phone] BUN 15 mg/dL 7-18 Creatinine 1.1 mg/dL [...] D deficiency has been defined by the [place] [employer] [place] and an Endocrine Society practice guideline as a level of serum 25-OH vitamin D less than 20 ng/mL (1,2). The Endocrine Society went on to further define vitamin D insufficiency as a level between 21 and 29 ng/mL (2). 1. IOM ([place] [employer]). 2010. Dietary reference intakes for calcium and D. [place]: The National Academies Press. 2. Natasha MF, Gavin KANG, Avila CEDENO, et al. Evaluation, treatment, and prevention of vitamin D deficiency: an Endocrine Society clinical practice guideline. JCEM. 2010; 96(7):1911-30. Performed at: RN - [facility] [address] [id number] Card Boxer: Mary Rene MD, Phone: [phone] PATIENT UNABLE TO VOID WILL BRING [...] [email or web address]. Procedures Date Code Description Status 01/29/2018 38965 Stress Test Interpre And Report Only Completed 01/29/2018 33749 Stress Test Physician Super Only Completed 01/29/2018 24787 Myocardial Imaging Tomographic Multiple Study AT Rest Completed Or Stress 01/24/2018 25311 Event Monitor Inter/Review Only Completed 01/14/2018 03472 EKG-Tracing And Report Completed 01/02/2018 91938 Echocardiogram Complete Completed 07/12/2017 61433 EKG-Tracing And Report Completed 01/22/2017 96617 Echocardiogram Complete Completed 06/01/2015 64655 Echocardiogram Complete Completed 04/28/2015 73301 EKG-Tracing And Report Completed 05/07/2014 [id number] Bone Mineral Density Test Completed 05/07/2014 [id number] Mammogram Completed 04/16/2014 33270 EKG-Tracing And Report Completed 10/01/2013 45576 Echocardiogram Complete Completed 01/02/2013 41533 Echocardiogram Complete Completed 10/21/2012 99600 EKG-Tracing And Report Completed 05/27/2012 [id number] Colonoscopy Completed 09/13/2011 52526 EKG-Tracing And Report Completed 09/07/2010 95824 Doppler ECHO Color Flow Mapping Completed 09/07/2010 89479 Doppler Echocardiogram Complete Completed 09/07/2010 78957 Transesophageal Echocardiogram Completed 06/17/2010 80425 EKG-Tracing And Report Completed 06/17/2010 86299 EKG-Tracing And Report Completed 05/03/2010 03879 Echocardiogram Complete Completed Encounters Type Date Location [...] hypertension Office Visit 12/03/2017 9:30a Primary [facility] [place], I10 Essential ( primary) Office Christina [facility] hypertension M46.1 Sacroiliitis, not elsewhere classified Office Visit 08/28/2017 10:30a [facility] [place], Christina, M54.2 Cervicalgia Office RPAC I10 Essential (primary) hypertension R53.83 Other fatigue Office Visit 07/12/2017 Cardiology Constantino Burleson I34.0 Nonrheumatic mitral 11:20a Office Kalli Frances, FACC (valve) insufficiency I10 Essential (primary) hypertension E78.5 Hyperlipidemia, unspecified R53.83 Other fatigue Office Visit 05/21/2017 2:45p [facility] [place], L29.9 Pruritus, Office Christina, [facility] unspecified I10 Essential (primary) hypertension E78.5 Hyperlipidemia, unspecified W23.1xxD Caught, crush, jammed, or pinched betw stationry obj, subs S67.193D Crushing injury of left middle finger, subsequent encounter Office Visit 01/29/2017 2:15p [facility] [place], K59.00 Constipation, Office Christina [facility] unspecified M54.31 Sciatica, right side I34.0 Nonrheumatic mitral (valve) insufficiency I10 Essential (primary) hypertension E78.5 Hyperlipidemia, unspecified Office Visit 01/10/2017 1:30p Cardiology Office Johan, I34.0 Nonrheumatic mitral Marlyss B., (valve) [place] insufficiency I10 Essential (primary) hypertension E78.5 Hyperlipidemia, unspecified Office Visit 12/29/2016 2:00p [facility] [place], M47.9 Spondylosis, Office Christina, [facility] unspecified K59.00 Constipation, unspecified Office Visit 07/06/2016 Cardiology Constantino Burleson I34.0 Nonrheumatic mitral 3:00p Office Kalli Frances, FACC (valve) insufficiency I10 Essential (primary) hypertension Office Visit 01/03/2016 2:20p Cardiology Office Kae Pantoja I10 Essential Jada, ELISE, (primary) 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 hypertension I34.0 Nonrheumatic mitral (valve) insufficiency E78.5 Hyperlipidemia, unspecified Office Visit 12/06/2015 8:00a Cardiology Office Kae Pantoja I10 Essential Jada, ELISE, (primary) 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 hypertension I34.0 Nonrheumatic mitral (valve) insufficiency Office Visit 06/03/2015 Cardiology Constantino Burleson I34.0 Nonrheumatic mitral 3:00p Office M., MLeisa., FACC (valve) insufficiency I10 Essential (primary) hypertension Office Visit 04/28/2015 2:40p Cardiology Kae Pantoja R60.9 Edema, Office ELISE Elias, unspecified 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 I34.0 Nonrheumatic mitral (valve) insufficiency I10 Essential (primary) hypertension Office Visit 10/23/2014 1:20p Cardiology Office Constantino Burleson 424.0 Mitral Valve M., M.D., FACC Disorder 780.79 Malaise And Fatigue Other 401.1 Hypertension Benign 786.2 Cough Office Visit 04/16/2014 2:40p Cardiology Office Kae Pantoja 424.0 Mitral Valve ELISE Elias, Disorder 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 401.1 Hypertension Benign Office Visit 10/01/2013 9:30a Cardiology Office Constantino Burleson 424.0 Mitral Valve M., M.DShree, FACC Disorder 401.1 Hypertension Benign 780.79 Malaise And Fatigue Other Office Visit 07/01/2013 3:40p Cardiology Office Kae Pantoja 424.0 Mitral Valve ELISE Elias, Disorder 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 401.1 Hypertension Benign 416.8 Pulmonary Heart Disease [...] Constantino Burleson 787.01 Nausea Jean Frances M.D., [facility] Vomiting 424.0 Mitral Valve Disorder 401.1 Hypertension Benign 786.05 Shortness Of Breath Office Visit 09/08/2010 10:00a Cardiology Office Alfredito Cannon 787.01 Nausea Jean Rust MD, PhD Vomiting Office Visit 06/17/2010 10:00a Cardiology Office Kae Pantoja 424.0 Mitral Valve Simonetta, Disorder MSN, 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 401.1 Hypertension Benign 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 The stress test was negative for ischemia. No further testing is xtqewovjoW73.1 Bradycardia, unspecifiedComments:She did not show significant bradycardia [...] pulmonary hypertension. She has no CHF symptoms.Will tezrpqO72.02 Shortness of breathComments:She has manageable FERNANDEZ which seems to be stable according to her as well as her daughter. Will not make changes. She will be seen in 6 months.AllFollow up:Follow up visit in 6 months.
--- OUTSIDE RECORDS SUMMARY | 2018-05-11 07:18 | XMS REPORT | Continuity of Care Document ---
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 Christina Pérez RPAC Primary Care Physician Unavailable Payers Date Identification Numbers Payment Provider Subscriber Policy Number: [id number] Medicare Jenna Franco PayID: [id number] [address] [place] [address] Policy Number: [id number] Medicaid Jenna Franco Group Name: 2 1 [address] PayID: [id number] [place] [address] Advance Directives Description No Information Available Problems Date Description Provider Status Onset: 09/08/2010 Mitral valve disorder Constantino Burleson M.D., [facility]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 Onset: 10/21/2012 Dyspnea Constantino Burleson M.D., Active FAC Onset: 10/01/2013 Malaise and fatigue Constantino Burleson M.D., Active [facility] Onset: 04/28/2015 Essential hypertension Kae Pantoja, MSN, Active MACHINE HAND Onset: 12/28/2016 Osteoporosis Christina Pérez RPAC Active [...] Onset: 02/21/2018 Chest pain Constantino Burleson M.D., [facility] Active Onset: 02/21/2018 Bradycardia, unspecified Constantino Burleson M.D., [facility] Active Onset: 09/08/2010 Nausea and vomiting Alfredito Cannon MD, PhD Resolved Resolved: 12/28/2016 Onset: 12/30/2012 Cough Constantino Burleson M.D., [facility] Resolved Resolved: 12/28/2016 Family History Date Family [...] s tablet by Constantino M.D., every day [facility] Hydrochlorothiaz 10/24/19 Active Tablets 25mg 90tab take one Davidenko clay 15 s tablet by , Constantino Frances M.D., every day [facility] Docusate Sodium Active Capsules 100mg 270ca Take [...] tablet by lul Amaya M.D. every day [id number] Active Chewtabs 1mg 1 tab by Unknown [...] kg/m2 BSA (Body Surface Area) 1.64 m2 [place] body weight in kilograms 59 kg O2 % BldC Oximetry 98 % ra 07/12/2017 11:24am BP Systolic Sitting Left Arm 120 mmHg BP Diastolic Sitting Left Arm 64 mmHg Heart Rate 64 /min Respiratory Rate 14 /min Height 66 inches 5'6" Weight 118.00 lb BMI (Body Mass Index) 19.0 kg/m2 BSA (Body Surface Area) 1.60 m2 Clayton body weight in kilograms 59 kg 05/21/2017 3:30pm BP Systolic Sitting Right Arm 122 mmHg BP Diastolic Sitting Right Arm 64 mmHg Heart Rate 58 /min Height 66 inches 5'6" Weight 121.00 lb BMI (Body Mass Index) 19.5 kg/m2 BSA (Body Surface Area) 1.62 m2 Clayton body weight in kilograms 59 kg O2 % BldC Oximetry 97 % ra 01/29/2017 2:14pm BP Systolic 162 mmHg BP Diastolic 62 mmHg Heart Rate 69 /min Respiratory Rate 12 /min Height 66 inches 5'6" Weight 128.12 lb BMI (Body Mass Index) 20.7 kg/m2 BSA (Body Surface Area) 1.65 m2 Clayton body weight in kilograms 59 kg O2 % BldC Oximetry 82 % 01/10/2017 1:35pm BP Systolic Sitting Left Arm 146 mmHg BP Diastolic Sitting Left Arm 82 mmHg Heart Rate 80 /min Respiratory Rate 16 /min Height 66 inches 5'6" Weight 121.00 lb BMI (Body Mass Index) 19.5 kg/m2 BSA (Body Surface Area) 1.62 m2 Clayton body weight in kilograms 59 kg 12/29/2016 1:46pm BP Systolic Sitting Right Arm 134 mmHg BP Diastolic Sitting Right Arm 60 mmHg Heart Rate 58 /min Respiratory Rate 18 /min Height 66 inches 5'6" Weight 125.00 lb BMI (Body Mass Index) 20.2 kg/m2 BSA (Body Surface Area) 1.64 m2 [place] body weight in kilograms 59 kg O2 % BldC Oximetry 96 % ra 07/06/2016 3:19pm BP Systolic Sitting Left Arm 140 mmHg BP Diastolic Sitting Left Arm 70 mmHg Heart Rate 60 /min Respiratory Rate 18 /min Height 66 inches 5'6" Weight 127.00 lb BMI (Body Mass Index) 20.5 kg/m2 BSA (Body Surface Area) 1.65 m2 [place] body weight in kilograms 59 kg 01/03/2016 [...] Test Result H/L Range Note CBS 05/22/2017 [facility] White Blood 9.1 K/uL N 3.1-10.7 1 W/Automated [address] [place], [place] [id number] [phone] Red Blood Count 4.09 M/uL N 3.90-5.40 [...] 40.4-72.8 Lymph % 42.3 % High 20.0-42.0 Juncos % 6.9 % N 4.3-13.2 Eo% 1.3 % N 0.0-6.6 Bas% 0.2 % N 0.0-1.1 Neut# 4.48 K/uL N 1.8-7.0 Lymph # 3.85 K/uL N 1.0-4.0 Juncos # 0.63 K/uL N 0.3-0.9 Eos # 0.12 K/uL N 0.0-0.5 Baso # 0.02 K/uL N 0.0-0.1 Comprehensive Metabolic 05/21/2017 [facility] Glucose 89 mg/dL N 74-106 [address] [place] [address] [phone] BUN 19 mg/dL High 7-18 Creatinine 0.7 [...] U/L N 45-117 LDL Cholesterol Profile 05/21/2017 [facility] Cholesterol 149 mg/dL <[address] [place] [address] [phone] Triglycerides 90 mg/dL <150 5 HDL Cholesterol 59 mg/dL >40 6 LDL-Cholesterol 72 mg/dL < 100 7 Laboratory test 05/21/2017 [facility] Vitamin 42.0 30.0-100.0 [address] D,25-Hydroxy ng/[place] [address] [phone] Laboratory test 02/24/2014 [facility] Microalb/Creat See Note [address] Ratio,[place] [address] [phone] CBC 02/24/2014 [facility] White Blood 5.7 K/uL 3.1-10.[address] [place] [address] [phone] Red Blood Count 4.21 M/uL 3.90-5.40 Hemoglobin 12.8 gm/dL 11.6-15.8 Hematocrit 39.0 % 36.0-46.1 Mean Cell Volume 92.6 fl 80.9-99.0 Mean Corpuscular HGB 30.4 pg 25.9-32.7 Mean Corpuscular HGB Conc 32.8 g/dL 30.8-34.3 Platelet Count 189 K/uL 155-360 Red Cell Distri Width %CV 12.8 % 11.7-14.4 Mean Platelet Volume 12.8 fL High 8.9-12.4 LDL Cholesterol 02/24/2014 [facility] Cholesterol 136 mg/dL < 200 [address] [place] [address] [phone] Triglycerides 58 mg/dL < 150 11 HDL Cholesterol 58 mg/dL > 40 12 LDL-Cholesterol 66 mg/dL < 100 13 Comprehensive Metabolic 02/24/2014 [facility] Glucose 90 mg/dL 74-106 Panel [address] [place] [address] [phone] BUN 15 mg/dL 7-18 Creatinine 1.1 mg/dL [...] D deficiency has been defined by the [place] [employer] and an Endocrine Society practice guideline as a level of serum 25-OH vitamin D less than 20 ng/mL (1,2). The Endocrine Society went on to further define vitamin D insufficiency as a level between 21 and 29 ng/mL (2). 1. IOM ([place] [employer]). 2010. Dietary reference intakes for calcium and D. [place]: The National Academies Press. 2. Natasha MF, Gavin KANG, Avila CEDENO, et al. Evaluation, treatment, and prevention of vitamin D deficiency: an Endocrine Society clinical practice guideline. JCEM. 2010; 96(7):1911-30. Performed at: RN - [facility] [address] [id number] Professor Of Special Education: Mary Rene MD, Phone: [phone] PATIENT UNABLE TO VOID WILL BRING [...] [email or web address]. Procedures Date Code Description Status 01/29/2018 16443 Stress Test Interpre And Report Only Completed 01/29/2018 25459 Stress Test Physician Super Only Completed 01/29/2018 15416 Myocardial Imaging Tomographic Multiple Study AT Rest Completed Or Stress 01/24/2018 76455 Event Monitor Inter/Review Only Completed 01/14/2018 11184 EKG-Tracing And Report Completed 01/02/2018 42220 Echocardiogram Complete Completed 07/12/2017 34307 EKG-Tracing And Report Completed 01/22/2017 70085 Echocardiogram Complete Completed 06/01/2015 84980 Echocardiogram Complete Completed 04/28/2015 43289 EKG-Tracing And Report Completed 05/07/2014 [id number] Bone Mineral Density Test Completed 05/07/2014 34718105 Mammogram Completed 04/16/2014 73480 EKG-Tracing And Report Completed 10/01/2013 47335 Echocardiogram Complete Completed 01/02/2013 06557 Echocardiogram Complete Completed 10/21/2012 34350 EKG-Tracing And Report Completed 05/27/2012 [id number] Colonoscopy Completed 09/13/2011 04026 EKG-Tracing And Report Completed 09/07/2010 46347 Doppler ECHO Color Flow Mapping Completed 09/07/2010 71080 Doppler Echocardiogram Complete Completed 09/07/2010 06315 Transesophageal Echocardiogram Completed 06/17/2010 60217 EKG-Tracing And Report Completed 06/17/2010 90437 EKG-Tracing And Report Completed 05/03/2010 39538 Echocardiogram Complete Completed Encounters Type Date Location [...] hypertension Office Visit 12/03/2017 9:30a [facility] [place], I10 Essential ( primary) Office Christina [facility] hypertension M46.1 Sacroiliitis, not elsewhere classified Office Visit 08/28/2017 10:30a [facility] [place], Christina, M54.2 Cervicalgia Office RPAC I10 Essential (primary) hypertension R53.83 Other fatigue Office Visit 07/12/2017 Cardiology Constantino Burleson I34.0 Nonrheumatic mitral 11:20a Office Kalli Frances, FACC (valve) insufficiency I10 Essential (primary) hypertension E78.5 Hyperlipidemia, unspecified R53.83 Other fatigue Office Visit 05/21/2017 2:45p [facility] [place], L29.9 Pruritus, Office [facility] unspecified I10 Essential (primary) hypertension E78.5 Hyperlipidemia, unspecified W23.1xxD Caught, crush, jammed, or pinched betw stationry obj, subs S67.193D Crushing injury of left middle finger, subsequent encounter Office Visit 01/29/2017 2:15p [facility] [place], K59.00 Constipation, Office Christina [facility] unspecified M54.31 Sciatica, right side I34.0 Nonrheumatic mitral (valve) insufficiency I10 Essential (primary) hypertension E78.5 Hyperlipidemia, unspecified Office Visit 01/10/2017 1:30p Cardiology Office Johan, I34.0 Nonrheumatic mitral Marlyss B., (valve) [place] insufficiency I10 Essential (primary) hypertension E78.5 Hyperlipidemia, unspecified Office Visit 12/29/2016 2:00p [facility] [place], M47.9 Spondylosis, Office Christina, [facility] unspecified K59.00 Constipation, unspecified Office Visit 07/06/2016 Cardiology Constantino Burleson I34.0 Nonrheumatic mitral 3:00p Office Kalli Frances, FACC (valve) insufficiency I10 Essential (primary) hypertension Office Visit 01/03/2016 2:20p Cardiology Office Kae Pantoja I10 Essential Jada, ELISE, (primary) MACHINE HAND hypertension I34.0 Nonrheumatic mitral (valve) insufficiency E78.5 Hyperlipidemia, unspecified Office Visit 12/06/2015 8:00a Cardiology Office Kae Pantoja I10 Essential Jada, ELISE, (primary) MACHINE HAND hypertension I34.0 Nonrheumatic mitral (valve) insufficiency Office Visit 06/03/2015 Cardiology Constantino Burleson I34.0 Nonrheumatic mitral 3:00p Office M., MLesia., FACC (valve) insufficiency I10 Essential (primary) hypertension Office Visit 04/28/2015 2:40p Cardiology Kae Pantoja R60.9 Edema, Office ELISE Elias, unspecified MACHINE HAND I34.0 Nonrheumatic mitral (valve) insufficiency I10 Essential (primary) hypertension Office Visit 10/23/2014 1:20p Cardiology Office Constantino Burleson 424.0 Mitral Valve M., M.D., FACC Disorder 780.79 Malaise And Fatigue Other 401.1 Hypertension Benign 786.2 Cough Office Visit 04/16/2014 2:40p Cardiology Office Kae Pantoja 424.0 Mitral Valve ELISE Elias, Disorder MACHINE HAND 401.1 Hypertension Benign Office Visit 10/01/2013 9:30a Cardiology Office Constantino Burleson 424.0 Mitral Valve M., M.DShree, FACC Disorder 401.1 Hypertension Benign 780.79 Malaise And Fatigue Other Office Visit 07/01/2013 3:40p Cardiology Office Kae Pantoja 424.0 Mitral Valve ELISE Elias, Disorder MACHINE HAND 401.1 Hypertension Benign 416.8 Pulmonary Heart Disease [...] Constantino Burleson 787.01 Nausea Jean Frances M.D., [facility] Vomiting 424.0 Mitral Valve Disorder 401.1 Hypertension Benign 786.05 Shortness Of Breath Office Visit 09/08/2010 10:00a Cardiology Office Alfredito Cannon 787.01 Nausea Jean Rust MD, PhD Vomiting Office Visit 06/17/2010 10:00a Cardiology Office Kae Pantoja 424.0 Mitral Valve Simonetta, Disorder MSN, MACHINE HAND 401.1 Hypertension Benign 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 786.05 Shortness Of Breath Office Visit 07/04/2007 Cardiology Constantino Burleson 401.1 Hypertension 11:00a Office Kalli Frances, [facility] Benign Office Visit 06/18/2007 Cardiology Constantino Burleson 424.0 Mitral Valve 11:00a Office Kalli Frances, [facility] Disorder 401.1 Hypertension Benign 794.31 Electrocardiogram (ECG) (EKG) Abnormal Plan of Treatment Future Appointment(s):08/22/2018 8:40 am - Constantino Burleson M.D., [facility] at Cardiology [id number]/21/2018 - Constantino Burleson M.D., FACCR07.9 Chest pain, unspecifiedComments:No recurrence. The stress test was negative for ischemia. No further testing is eaeasyidkD61.1 Bradycardia, unspecifiedComments:She did not show significant bradycardia [...] pulmonary hypertension. She has no CHF symptoms.Will kbfnpiZ84.02 Shortness of breathComments:She has manageable FERNANDEZ which seems to be stable according to her as well as her daughter. Will not make changes. She will be seen in 6 months.AllFollow up:Follow up visit in 6 months.
--- OUTSIDE RECORDS SUMMARY | 2018-05-11 07:19 | XMS REPORT | Continuity of Care Document ---
:1930 External Reference #:[id number] Author Name Caron Neal Care Team Providers Name Role Phone Christina Pérez RPAC Care Team Information Timber Deadener Unavailable Christina Pérez RPAC Primary Care Physician Unavailable Payers Date Identification Numbers Payment Provider Subscriber Policy Number: [id number] Medicare Jenna Franco PayID: [id number] [address] [place] [address] Policy Number: [id number] Medicaid Jenna Franco Group Name: 2 1 [address] PayID: [id number] [place] [address] Advance Directives Description No Information Available Problems Date Description Provider Status Onset: 09/08/2010 Mitral valve disorder Constantino Burleson M.D., [facility]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 Onset: 10/21/2012 Dyspnea Constantino Burleson M.D., Active FAC Onset: 10/01/2013 Malaise and fatigue Constantino Burleson M.D., Active [facility] Onset: 04/28/2015 Essential hypertension Kae Pantoja, MSN, Active [employer] Onset: 12/28/2016 Osteoporosis Christina Pérez RPAC Active [...] Onset: 02/21/2018 Chest pain Constantino Burleson M.D., [facility] Active Onset: 02/21/2018 Bradycardia, unspecified Constantino Burleson M.D., [facility] Active Onset: 09/08/2010 Nausea and vomiting Alfredito Cannon MD, PhD Resolved Resolved: 12/28/2016 Onset: 12/30/2012 Cough Constantino Burleson M.D., [facility] Resolved Resolved: 12/28/2016 Family History Date Family [...] s tablet by Constantino M.D., every day [facility] Hydrochlorothiaz 10/24/19 Active Tablets 25mg 90tab take one Davidenko clay 15 s tablet by , Constantino Frances M.D., every day [facility] Docusate Sodium Active Capsules 100mg 270ca Take [...] Atorvastatin Active Tablets 20mg 90tab take one Advies, Calcium 00 s tablet by lul Amaya M.D. every day [id number] Active Chewtabs 1mg 1 tab by Unknown [...] kg/m2 BSA (Body Surface Area) 1.64 m2 Basile body weight in kilograms 59 kg O2 % BldC Oximetry 98 % ra 07/12/2017 11:24am BP Systolic Sitting Left Arm 120 mmHg BP Diastolic Sitting Left Arm 64 mmHg Heart Rate 64 /min Respiratory Rate 14 /min Height 66 inches 5'6" Weight 118.00 lb BMI (Body Mass Index) 19.0 kg/m2 BSA (Body Surface Area) 1.60 m2 Basile body weight in kilograms 59 kg 05/21/2017 3:30pm BP Systolic Sitting Right Arm 122 mmHg BP Diastolic Sitting Right Arm 64 mmHg Heart Rate 58 /min Height 66 inches 5'6" Weight 121.00 lb BMI (Body Mass Index) 19.5 kg/m2 BSA (Body Surface Area) 1.62 m2 Basile body weight in kilograms 59 kg O2 % BldC Oximetry 97 % ra 01/29/2017 2:14pm BP Systolic 162 mmHg BP Diastolic 62 mmHg Heart Rate 69 /min Respiratory Rate 12 /min Height 66 inches 5'6" Weight 128.12 lb BMI (Body Mass Index) 20.7 kg/m2 BSA (Body Surface Area) 1.65 m2 Basile body weight in kilograms 59 kg O2 % BldC Oximetry 82 % 01/10/2017 1:35pm BP Systolic Sitting Left Arm 146 mmHg BP Diastolic Sitting Left Arm 82 mmHg Heart Rate 80 /min Respiratory Rate 16 /min Height 66 inches 5'6" Weight 121.00 lb BMI (Body Mass Index) 19.5 kg/m2 BSA (Body Surface Area) 1.62 m2 Basile body weight in kilograms 59 kg 12/29/2016 1:46pm BP Systolic Sitting Right Arm 134 mmHg BP Diastolic Sitting Right Arm 60 mmHg Heart Rate 58 /min Respiratory Rate 18 /min Height 66 inches 5'6" Weight 125.00 lb BMI (Body Mass Index) 20.2 kg/m2 BSA (Body Surface Area) 1.64 m2 Basile body weight in kilograms 59 kg O2 % BldC Oximetry 96 % ra 07/06/2016 3:19pm BP Systolic Sitting Left Arm 140 mmHg BP Diastolic Sitting Left Arm 70 mmHg Heart Rate 60 /min Respiratory Rate 18 /min Height 66 inches 5'6" Weight 127.00 lb BMI (Body Mass Index) 20.5 kg/m2 BSA (Body Surface Area) 1.65 m2 Basile body weight in kilograms 59 kg 01/03/2016 [...] Result H/L Range Note CBS 05/22/2017 [facility] White Blood 9.1 K/uL N 3.1-10.7 1 W/Automated [address] Count [place], [place] [id number] [phone] Red Blood Count 4.09 M/uL N 3.90-5.40 [...] 40.4-72.8 Lymph % 42.3 % High 20.0-42.0 [place] % 6.9 % N 4.3-13.2 Eo% 1.3 % N 0.0-6.6 Bas% 0.2 % N 0.0-1.1 Neut# 4.48 K/uL N 1.8-7.0 Lymph # 3.85 K/uL N 1.0-4.0 [place] # 0.63 K/uL N 0.3-0.9 Eos # 0.12 K/uL N 0.0-0.5 Baso # 0.02 K/uL N 0.0-0.1 Comprehensive Metabolic 05/21/2017 [facility] Glucose 89 mg/dL N 74-106 [address] [place] [address] [phone] BUN 19 mg/dL High 7-18 Creatinine 0.7 [...] N 45-117 LDL Cholesterol Profile 05/21/2017 [facility] Cholesterol 149 mg/dL <[address] [place] [address] [phone] Triglycerides 90 mg/dL <150 5 HDL Cholesterol 59 mg/dL >40 6 LDL-Cholesterol 72 mg/dL < 100 7 Laboratory test 05/21/2017 [facility] Vitamin 42.0 30.0-100.0 [address] D,25-Hydroxy ng/[place] [address] [phone] Laboratory test 02/24/2014 [facility] Microalb/Creat See Note [address] Ratio,[place] [address] [phone] CBC 02/24/2014 [facility] White Blood 5.7 K/uL 3.1-10.[address] [place] [address] [phone] Red Blood Count 4.21 M/uL 3.90-5.40 Hemoglobin 12.8 gm/dL 11.6-15.8 Hematocrit 39.0 % 36.0-46.1 Mean Cell Volume 92.6 fl 80.9-99.0 Mean Corpuscular HGB 30.4 pg 25.9-32.7 Mean Corpuscular HGB Conc 32.8 g/dL 30.8-34.3 Platelet Count 189 K/uL 155-360 Red Cell Distri Width %CV 12.8 % 11.7-14.4 Mean Platelet Volume 12.8 fL High 8.9-12.4 LDL Cholesterol 02/24/2014 [facility] Cholesterol 136 mg/dL < 200 [address] [place] [address] [phone] Triglycerides 58 mg/dL < 150 11 HDL Cholesterol 58 mg/dL > 40 12 LDL-Cholesterol 66 mg/dL < 100 13 Comprehensive Metabolic 02/24/2014 [facility] Glucose 90 mg/dL 74-106 Panel [address] [place] [address] [phone] BUN 15 mg/dL 7-18 Creatinine 1.1 mg/dL [...] D deficiency has been defined by the [place] and an Endocrine Society practice guideline as a level of serum 25-OH vitamin D less than 20 ng/mL (1,2). The Endocrine Society went on to further define vitamin D insufficiency as a level between 21 and 29 ng/mL (2). 1. IOM ([place]). 2010. Dietary reference intakes for calcium and D. [place]: The National Academies Press. 2. Natasha MF, Gavin KANG, Avila CEDENO, et al. Evaluation, treatment, and prevention of vitamin D deficiency: an Endocrine Society clinical practice guideline. JCEM. 2010; 96(7):1911-30. Performed at: RN - [facility] [address] [id number] Logistics Planner: Mary Rene MD, Phone: [phone] PATIENT UNABLE TO VOID WILL BRING [...] [email or web address]. Procedures Date Code Description Status 01/29/2018 73978 Stress Test Interpre And Report Only Completed 01/29/2018 81442 Stress Test Physician Super Only Completed 01/29/2018 22617 Myocardial Imaging Tomographic Multiple Study AT Rest Completed Or Stress 01/24/2018 62818 Event Monitor Inter/Review Only Completed 01/14/2018 15898 EKG-Tracing And Report Completed 01/02/2018 27570 Echocardiogram Complete Completed 07/12/2017 92930 EKG-Tracing And Report Completed 01/22/2017 84540 Echocardiogram Complete Completed 06/01/2015 26715 Echocardiogram Complete Completed 04/28/2015 95775 EKG-Tracing And Report Completed 05/07/2014 342781700 Bone Mineral Density Test Completed 05/07/2014 86533831 Mammogram Completed 04/16/2014 01592 EKG-Tracing And Report Completed 10/01/2013 71184 Echocardiogram Complete Completed 01/02/2013 57833 Echocardiogram Complete Completed 10/21/2012 86827 EKG-Tracing And Report Completed 05/27/2012 [id number] Colonoscopy Completed 09/13/2011 21715 EKG-Tracing And Report Completed 09/07/2010 44122 Doppler ECHO Color Flow Mapping Completed 09/07/2010 32699 Doppler Echocardiogram Complete Completed 09/07/2010 96988 Transesophageal Echocardiogram Completed 06/17/2010 09036 EKG-Tracing And Report Completed 06/17/2010 17467 EKG-Tracing And Report Completed 05/03/2010 02023 Echocardiogram Complete Completed Encounters Type Date Location [...] hypertension Office Visit 12/03/2017 9:30a Primary Care [place], I10 Essential ( primary) Office Christina [facility] hypertension M46.1 Sacroiliitis, not elsewhere classified Office Visit 08/28/2017 10:30a Primary Care [place], Christina, M54.2 Cervicalgia Office RPAC I10 Essential (primary) hypertension R53.83 Other fatigue Office Visit 07/12/2017 Cardiology Constantino Burleson I34.0 Nonrheumatic mitral 11:20a Office Kalli Frances, FACC (valve) insufficiency I10 Essential (primary) hypertension E78.5 Hyperlipidemia, unspecified R53.83 Other fatigue Office Visit 05/21/2017 2:45p Primary [facility] [place], L29.9 Pruritus, Office [facility] unspecified I10 Essential (primary) hypertension E78.5 Hyperlipidemia, unspecified W23.1xxD Caught, crush, jammed, or pinched betw stationry obj, subs S67.193D Crushing injury of left middle finger, subsequent encounter Office Visit 01/29/2017 2:15p Primary Care [place], K59.00 Constipation, Office Christina [facility] unspecified M54.31 Sciatica, right side I34.0 Nonrheumatic mitral (valve) insufficiency I10 Essential (primary) hypertension E78.5 Hyperlipidemia, unspecified Office Visit 01/10/2017 1:30p Cardiology Office Johan, I34.0 Nonrheumatic mitral Marlyss B., (valve) [place] insufficiency I10 Essential (primary) hypertension E78.5 Hyperlipidemia, unspecified Office Visit 12/29/2016 2:00p Primary Care [place], M47.9 Spondylosis, Office Christina, [facility] unspecified K59.00 Constipation, unspecified Office Visit 07/06/2016 Cardiology Constantino Burleson I34.0 Nonrheumatic mitral 3:00p Office Kalli Frances, FACC (valve) insufficiency I10 Essential (primary) hypertension Office Visit 01/03/2016 2:20p Cardiology Office Kae Pantoja I10 Essential Jada, ELISE, (primary) [employer] hypertension I34.0 Nonrheumatic mitral (valve) insufficiency E78.5 Hyperlipidemia, unspecified Office Visit 12/06/2015 8:00a Cardiology Office Kae Pantoja I10 Essential Jada, ELISE, (primary) [employer] hypertension I34.0 Nonrheumatic mitral (valve) insufficiency Office Visit 06/03/2015 Cardiology Constantino Burleson I34.0 Nonrheumatic mitral 3:00p Office M., MLeisa., FACC (valve) insufficiency I10 Essential (primary) hypertension Office Visit 04/28/2015 2:40p Cardiology Kae Pantoja R60.9 Edema, Office ELISE Elias, unspecified [employer]IST I34.0 Nonrheumatic mitral (valve) insufficiency I10 Essential (primary) hypertension Office Visit 10/23/2014 1:20p Cardiology Office Constantino Burleson 424.0 Mitral Valve M., M.D., FACC Disorder 780.79 Malaise And Fatigue Other 401.1 Hypertension Benign 786.2 Cough Office Visit 04/16/2014 2:40p Cardiology Office Kae Pantoja 424.0 Mitral Valve ELISE Elias, Disorder [employer]IST 401.1 Hypertension Benign Office Visit 10/01/2013 9:30a Cardiology Office Constantino Burleson 424.0 Mitral Valve M., M.DShree, FACC Disorder 401.1 Hypertension Benign 780.79 Malaise And Fatigue Other Office Visit 07/01/2013 3:40p Cardiology Office Kae Pantoja 424.0 Mitral Valve ELISE Elias, Disorder [employer]IST 401.1 Hypertension Benign 416.8 Pulmonary Heart Disease [...] Constantino Burleson 787.01 Nausea Jean Frances M.D., [facility] Vomiting 424.0 Mitral Valve Disorder 401.1 Hypertension Benign 786.05 Shortness Of Breath Office Visit 09/08/2010 10:00a Cardiology Office Alfredito Cannon 787.01 Nausea Jean Rust MD, PhD Vomiting Office Visit 06/17/2010 10:00a Cardiology Office Kae Pantoja 424.0 Mitral Valve Simonetta, Disorder MSN, [employer]IST 401.1 Hypertension Benign 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 786.05 Shortness Of Breath Office Visit 07/04/2007 Cardiology Constantino Burleson 401.1 Hypertension 11:00a Office Kalli Frances, [facility] Benign Office Visit 06/18/2007 Cardiology Constantino Burleson 424.0 Mitral Valve 11:00a Office Kalli Frances, [facility] Disorder 401.1 Hypertension Benign 794.31 Electrocardiogram (ECG) (EKG) Abnormal Plan of Treatment Future Appointment(s):08/22/2018 8:40 am - Constantino Burleson M.D., [facility] at Cardiology [id number]/21/2018 - Constantino Burleson M.D., FACCR07.9 Chest pain, unspecifiedComments:No recurrence. The stress test was negative for ischemia. No further testing is [id number] Bradycardia, unspecifiedComments:She did not show significant bradycardia [...] pulmonary hypertension. She has no CHF symptoms.Will hguazkN29.02 Shortness of breathComments:She has manageable FERNANDEZ which seems to be stable according to her as well as her daughter. Will not make changes. She will be seen in 6 months.AllFollow up:Follow up visit in 6 months.
--- OUTSIDE RECORDS SUMMARY | 2018-05-11 07:19 | XMS REPORT | Continuity of Care Document ---
:1930 External Reference #:[id number] Author Name Caron Neal Care Team Providers Name Role Phone Christina Pérez RPAC Care Team Information Nurse Technician Unavailable Christina Pérez RPAC Primary Care Physician Unavailable Payers Date Identification Numbers Payment Provider Subscriber Policy Number: [id number] Medicare Jenna Franco PayID: [id number] [address] [place] [address] Policy Number: [id number] Medicaid Jenna Franco Group Name: 2 1 [address] PayID: [id number] [place] [address] Advance Directives Description No Information Available Problems Date Description Provider Status Onset: 09/08/2010 Mitral valve disorder Constantino Burleson M.D., [facility]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 Onset: 10/21/2012 Dyspnea Constantino Burleson M.D., Active FAC Onset: 10/01/2013 Malaise and fatigue Constantino Burleson M.D., Active [facility] Onset: 04/28/2015 Essential hypertension 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, 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, 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 Onset: 12/28/2016 Osteoporosis Christina Pérez RPAC Active Onset: 12/28/2016 Hyperlipidemia Christina Pérez RPAC Active Onset: 12/28/2016 Degenerative joint disease Christina Pérez RPAC Active involving multiple joints Note: cervical/lumbar spine Onset: 12/28/2016 Polyp of colon Christina Pérez RPAC Active Note: tubular adenoma 2012 Onset: 05/21/2017 Pruritus of skin Christina Pérez RPAC Active Onset: 08/28/2017 Neck pain Christnia Pérez RPAC Active Onset: 02/21/2018 Chest pain Constantino Burleson M.D., [facility] Active Onset: 02/21/2018 Bradycardia, unspecified Constantino Burleson M.D., [facility] Active Onset: 09/08/2010 Nausea and vomiting Alfredito Cannon MD, PhD Resolved Resolved: 12/28/2016 Onset: 12/30/2012 Cough Constantino Burleson M.D., [facility] Resolved Resolved: 12/28/2016 Family History Date Family [...] s tablet by Constantino M.D., every day [facility] Hydrochlorothiaz 10/24/19 Active Tablets 25mg 90tab take one Davidenko clay 15 s tablet by , Constantino Frances M.D., every day [facility] Docusate Sodium Active Capsules 100mg 270ca Take [...] tablet by lul Amaya M.D. every day [id number] Active Chewtabs 1mg 1 tab by Unknown [...] Jose Luis, 02/01/20 Seat : M 47.9 M.DShere 17 Physical Therapy 12/30/19 Hx Continue M47.9 [...] kg/m2 BSA (Body Surface Area) 1.64 m2 Gamaliel body weight in kilograms 59 kg O2 % BldC Oximetry 98 % ra 07/12/2017 11:24am BP Systolic Sitting Left Arm 120 mmHg BP Diastolic Sitting Left Arm 64 mmHg Heart Rate 64 /min Respiratory Rate 14 /min Height 66 inches 5'6" Weight 118.00 lb BMI (Body Mass Index) 19.0 kg/m2 BSA (Body Surface Area) 1.60 m2 Gamaliel body weight in kilograms 59 kg 05/21/2017 3:30pm BP Systolic Sitting Right Arm 122 mmHg BP Diastolic Sitting Right Arm 64 mmHg Heart Rate 58 /min Height 66 inches 5'6" Weight 121.00 lb BMI (Body Mass Index) 19.5 kg/m2 BSA (Body Surface Area) 1.62 m2 Gamaliel body weight in kilograms 59 kg O2 % BldC Oximetry 97 % ra 01/29/2017 2:14pm BP Systolic 162 mmHg BP Diastolic 62 mmHg Heart Rate 69 /min Respiratory Rate 12 /min Height 66 inches 5'6" Weight 128.12 lb BMI (Body Mass Index) 20.7 kg/m2 BSA (Body Surface Area) 1.65 m2 Gamaliel body weight in kilograms 59 kg O2 % BldC Oximetry 82 % 01/10/2017 1:35pm BP Systolic Sitting Left Arm 146 mmHg BP Diastolic Sitting Left Arm 82 mmHg Heart Rate 80 /min Respiratory Rate 16 /min Height 66 inches 5'6" Weight 121.00 lb BMI (Body Mass Index) 19.5 kg/m2 BSA (Body Surface Area) 1.62 m2 Gamaliel body weight in kilograms 59 kg 12/29/2016 1:46pm BP Systolic Sitting Right Arm 134 mmHg BP Diastolic Sitting Right Arm 60 mmHg Heart Rate 58 /min Respiratory Rate 18 /min Height 66 inches 5'6" Weight 125.00 lb BMI (Body Mass Index) 20.2 kg/m2 BSA (Body Surface Area) 1.64 m2 Gamaliel body weight in kilograms 59 kg O2 % BldC Oximetry 96 % ra 07/06/2016 3:19pm BP Systolic Sitting Left Arm 140 mmHg BP Diastolic Sitting Left Arm 70 mmHg Heart Rate 60 /min Respiratory Rate 18 /min Height 66 inches 5'6" Weight 127.00 lb BMI (Body Mass Index) 20.5 kg/m2 BSA (Body Surface Area) 1.65 m2 Gamaliel body weight in kilograms 59 kg 01/03/2016 [...] Test Result H/L Range Note CBS 05/22/2017 [facility] White Blood 9.1 K/uL N 3.1-10.7 1 W/Automated [address] [place], [place] [id number] [phone] Red Blood Count 4.09 M/uL N 3.90-5.40 [...] 40.4-72.8 Lymph % 42.3 % High 20.0-42.0 [place] % 6.9 % N 4.3-13.2 Eo% 1.3 % N 0.0-6.6 Bas% 0.2 % N 0.0-1.1 Neut# 4.48 K/uL N 1.8-7.0 Lymph # 3.85 K/uL N 1.0-4.0 [place] # 0.63 K/uL N 0.3-0.9 Eos # 0.12 K/uL N 0.0-0.5 Baso # 0.02 K/uL N 0.0-0.1 Comprehensive Metabolic 05/21/2017 [facility] Glucose 89 mg/dL N 74-106 [address] [place] [address] [phone] BUN 19 mg/dL High 7-18 Creatinine 0.7 [...] U/L N 45-117 LDL Cholesterol Profile 05/21/2017 [facility] Cholesterol 149 mg/dL <[address] [place] [address] [phone] Triglycerides 90 mg/dL <150 5 HDL Cholesterol 59 mg/dL >40 6 LDL-Cholesterol 72 mg/dL < 100 7 Laboratory test 05/21/2017 [facility] Vitamin 42.0 30.0-100.0 [address] D,25-Hydroxy ng/[place] [address] [phone] Laboratory test 02/24/2014 [facility] Microalb/Creat See Note [address] Ratio,[place] [address] [phone] CBC 02/24/2014 [facility] White Blood 5.7 K/uL 3.1-10.[address] [place] [address] [phone] Red Blood Count 4.21 M/uL 3.90-5.40 Hemoglobin 12.8 gm/dL 11.6-15.8 Hematocrit 39.0 % 36.0-46.1 Mean Cell Volume 92.6 fl 80.9-99.0 Mean Corpuscular HGB 30.4 pg 25.9-32.7 Mean Corpuscular HGB Conc 32.8 g/dL 30.8-34.3 Platelet Count 189 K/uL 155-360 Red Cell Distri Width %CV 12.8 % 11.7-14.4 Mean Platelet Volume 12.8 fL High 8.9-12.4 LDL Cholesterol 02/24/2014 [facility] Cholesterol 136 mg/dL < 200 [address] [place] [address] [phone] Triglycerides 58 mg/dL < 150 11 HDL Cholesterol 58 mg/dL > 40 12 LDL-Cholesterol 66 mg/dL < 100 13 Comprehensive Metabolic 02/24/2014 [facility] Glucose 90 mg/dL 74-106 Panel [address] [place] [address] [phone] BUN 15 mg/dL 7-18 Creatinine 1.1 mg/dL [...] D deficiency has been defined by the [place] of [employer] and an Endocrine Society practice guideline as a level of serum 25-OH vitamin D less than 20 ng/mL (1,2). The Endocrine Society went on to further define vitamin D insufficiency as a level between 21 and 29 ng/mL (2). 1. IOM ([place] [employer]). 2010. Dietary reference intakes for calcium and D. [place]: The National Academies Press. 2. Natasha MF, Gavin KANG, Avila CEDENO, et al. Evaluation, treatment, and prevention of vitamin D deficiency: an Endocrine Society clinical practice guideline. JCEM. 2010; 96(7):1911-30. Performed at: RN - [facility] [address] [id number] Relay Mechanic: Mary Rene MD, Phone: [phone] PATIENT UNABLE TO VOID WILL BRING [...] [email or web address]. Procedures Date Code Description Status 01/29/2018 04769 Stress Test Interpre And Report Only Completed 01/29/2018 13027 Stress Test Physician Super Only Completed 01/29/2018 06879 Myocardial Imaging Tomographic Multiple Study AT Rest Completed Or Stress 01/24/2018 09490 Event Monitor Inter/Review Only Completed 01/14/2018 91638 EKG-Tracing And Report Completed 01/02/2018 94196 Echocardiogram Complete Completed 07/12/2017 37787 EKG-Tracing And Report Completed 01/22/2017 19643 Echocardiogram Complete Completed 06/01/2015 51083 Echocardiogram Complete Completed 04/28/2015 40679 EKG-Tracing And Report Completed 05/07/2014 [id number] Bone Mineral Density Test Completed 05/07/2014 75365840 Mammogram Completed 04/16/2014 48930 EKG-Tracing And Report Completed 10/01/2013 73214 Echocardiogram Complete Completed 01/02/2013 84769 Echocardiogram Complete Completed 10/21/2012 06268 EKG-Tracing And Report Completed 05/27/2012 [id number] Colonoscopy Completed 09/13/2011 75080 EKG-Tracing And Report Completed 09/07/2010 00617 Doppler ECHO Color Flow Mapping Completed 09/07/2010 55995 Doppler Echocardiogram Complete Completed 09/07/2010 69329 Transesophageal Echocardiogram Completed 06/17/2010 01557 EKG-Tracing And Report Completed 06/17/2010 25685 EKG-Tracing And Report Completed 05/03/2010 67035 Echocardiogram Complete Completed Encounters Type Date Location [...] hypertension Office Visit 12/03/2017 9:30a Primary Care Talmage, I10 Essential ( primary) Office Crhistina [facility] hypertension M46.1 Sacroiliitis, not elsewhere classified Office Visit 08/28/2017 10:30a Primary Care Talmage, Christina, M54.2 Cervicalgia Office RPAC I10 Essential (primary) hypertension R53.83 Other fatigue Office Visit 07/12/2017 Cardiology Constantino Burleson I34.0 Nonrheumatic mitral 11:20a Office Kalli Frances, FACC (valve) insufficiency I10 Essential (primary) hypertension E78.5 Hyperlipidemia, unspecified R53.83 Other fatigue Office Visit 05/21/2017 2:45p Primary Care [place], L29.9 Pruritus, Office [facility] unspecified I10 Essential (primary) hypertension E78.5 Hyperlipidemia, unspecified W23.1xxD Caught, crush, jammed, or pinched betw stationry obj, subs S67.193D Crushing injury of left middle finger, subsequent encounter Office Visit 01/29/2017 2:15p Primary Care Talmage, K59.00 Constipation, Office Christina [facility] unspecified M54.31 Sciatica, right side I34.0 Nonrheumatic mitral (valve) insufficiency I10 Essential (primary) hypertension E78.5 Hyperlipidemia, unspecified Office Visit 01/10/2017 1:30p Cardiology Office Johan, I34.0 Nonrheumatic mitral Marlyss B., (valve) PA insufficiency I10 Essential (primary) hypertension E78.5 Hyperlipidemia, unspecified Office Visit 12/29/2016 2:00p Primary Care Talmage, M47.9 Spondylosis, Office Christina, [facility] unspecified K59.00 Constipation, unspecified Office Visit 07/06/2016 Cardiology Constantino Burleson I34.0 Nonrheumatic mitral 3:00p Office Kalli Frances, FACC (valve) insufficiency I10 Essential (primary) hypertension Office Visit 01/03/2016 2:20p Cardiology Office Kae Pantoja I10 Essential Jada, ELISE, (primary) MACHINE SET UP TECHNICIAN hypertension I34.0 Nonrheumatic mitral (valve) insufficiency E78.5 Hyperlipidemia, unspecified Office Visit 12/06/2015 8:00a Cardiology Office Kae Pantoja I10 Essential Jada, ELISE, (primary) MACHINE SET UP TECHNICIAN hypertension I34.0 Nonrheumatic mitral (valve) insufficiency Office Visit 06/03/2015 Cardiology Constantino Burleson I34.0 Nonrheumatic mitral 3:00p Office M., MLeisa., FACC (valve) insufficiency I10 Essential (primary) hypertension Office Visit 04/28/2015 2:40p Cardiology Kae Pantoja R60.9 Edema, Office ELISE Elias, unspecified MACHINE SET UP TECHNICIAN I34.0 Nonrheumatic mitral (valve) insufficiency I10 Essential (primary) hypertension Office Visit 10/23/2014 1:20p Cardiology Office Constantino Burleson 424.0 Mitral Valve M., M.D., FACC Disorder 780.79 Malaise And Fatigue Other 401.1 Hypertension Benign 786.2 Cough Office Visit 04/16/2014 2:40p Cardiology Office Kae Pantoja 424.0 Mitral Valve ELISE Elias, Disorder MACHINE SET UP TECHNICIAN 401.1 Hypertension Benign Office Visit 10/01/2013 9:30a Cardiology Office Constantino Burleson 424.0 Mitral Valve M., M.DShree, FACC Disorder 401.1 Hypertension Benign 780.79 Malaise And Fatigue Other Office Visit 07/01/2013 3:40p Cardiology Office Kae Pantoja 424.0 Mitral Valve ELISE Elias, Disorder MACHINE SET UP TECHNICIAN 401.1 Hypertension Benign 416.8 Pulmonary Heart Disease [...] Constantino Burleson 787.01 Nausea Jean Frances M.D., [facility] Vomiting 424.0 Mitral Valve Disorder 401.1 Hypertension Benign 786.05 Shortness Of Breath Office Visit 09/08/2010 10:00a Cardiology Office Alfredito Cannon 787.01 Nausea Jean Rust MD, PhD Vomiting Office Visit 06/17/2010 10:00a Cardiology Office Kae Pantoja 424.0 Mitral Valve Simonetta, Disorder MSN, MACHINE SET UP TECHNICIAN 401.1 Hypertension Benign 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 The stress test was negative for ischemia. No further testing is [id number] Bradycardia, unspecifiedComments:She did not show significant bradycardia [...] pulmonary hypertension. She has no CHF symptoms.Will ubbltgE48.02 Shortness of breathComments:She has manageable FERNANDEZ which seems to be stable according to her as well as her daughter. Will not make changes. She will be seen in 6 months.AllFollow up:Follow up visit in 6 months.
[2018-05-11] MEDS ORDERED: Albuterol HFA INHALER* 8 gm MDI INH ONE (07:46)
--- NOTE | 2018-05-11 07:52 | UC ---
Respiratory Complaint HPI - HPI Summary HPI Summary: The patient is 88-year-old female with a 2-3 day history of progressively worsening cough and wheezing. She is currently out of her albuterol inhaler. She states that she has been coughing so hard that her ribs hurt. She has some dyspnea with exertion. She denies any fever or chills. She denies any headache or myalgias. He states that she has had pneumonia multiple times in the past but has never required hospitalization for. She states that she has never needed steroids for her asthma. She denies any nausea vomiting or diarrhea. - History of Current Complaint Chief Complaint: UCRespiratory Stated Complaint: DEEP COUGH Time Seen by Provider: 05/11/18 07:33 Hx Obtained From: Patient Onset/Duration: Gradual Onset Timing: Constant Severity Initially: Mild Severity Currently: Moderate Pain Intensity: 3 Pain Scale Used: 0-10 Numeric Character: Cough: Productive Aggravating Factors: Exertion, Deep Breaths Alleviating Factors: Nothing Associated Signs And Symptoms: Positive: Dyspnea - with exertion, Wheezing. Negative: Fever, Chills, Pleuritic Chest Pain, Hemoptysis, Dizziness, Calf Pain , Calf Swelling, Edema, URI, Nasal Congestion, Hoarseness, Sinus Discomfort - Allergies/Home Medications Allergies/Adverse Reactions: Allergies Allergy/AdvReac Type Severity Reaction Status Date / Time lisinopril Allergy Unknown Verified 05/11/18 07:22 Reaction Details Home Medications: Home Medications Albuterol inh POWDER (NF) [Proair Respiclick] 2 puff INH Q4HR PRN 05/11/18 [ History Confirmed 05/11/18] Alendronate Sodium 70 mg PO WEEKLY 05/11/18 [History Confirmed 05/11/18] Amlodipine Besylate [Norvasc] 5 mg PO DAILY 05/11/18 [History Confirmed 05/11/18 ] Aspirin 81 mg PO DAILY 05/11/18 [History Confirmed 05/11/18] Atorvastatin* [Lipitor*] 20 mg PO DAILY 05/11/18 [History Confirmed 05/11/18] Calcium Carbonate/Vitamin D3 [Calcium 500 + Vit D Caplet] 1 tab PO BID 05/11/18 [History Confirmed 05/11/18] Cholecalciferol (Vitamin D3) [Vitamin D3] 2,000 unit PO DAILY 05/11/18 [History Confirmed 05/11/18] Docusate Sodium 100 mg PO TID 05/11/18 [History Confirmed 05/11/18] GuaiFENesin DM* [Robitussin DM*] 1 dose PO Q4HR PRN 05/11/18 [History Confirmed 05/11/18] Hydrochlorothiazide TAB* [Hydrodiuril TAB*] 25 mg PO DAILY 05/11/18 [History Confirmed 05/11/18] Ibuprofen [Advil] 200 mg PO Q6HR PRN 05/11/18 [History Confirmed 05/11/18] Losartan Potassium [Cozaar] 50 mg PO DAILY 05/11/18 [History Confirmed 05/11/18] Omeprazole 20 mg PO DAILY 05/11/18 [History Confirmed 05/11/18] Solifenacin Succinate [Vesicare] 5 mg PO DAILY 05/11/18 [History Confirmed 05/11] PMH/Surg Hx/FS Hx/Imm Hx Previously Healthy: Yes Endocrine History: Dyslipidemia Cardiovascular History: Hypertension, Other Other Cardiovascular History: valvular issue Respiratory History: Asthma, Pneumonia - Surgical History Surgical History: None - Family History Known Family History: Positive: Hypertension - Social History Alcohol Use: None Substance Use Type: None Smoking Status (MU): Never Smoked Tobacco Review of Systems All Other Systems Reviewed And Are Negative: Yes Constitutional: Positive: Fatigue Skin: Positive: Negative Eyes: Positive: Negative ENT: Positive: Negative Respiratory: Positive: Cough Cardiovascular: Positive: Negative Gastrointestinal: Positive: Negative Genitourinary: Positive: Negative Motor: Positive: Negative Neurovascular: Positive: Negative Musculoskeletal: Positive: Negative Neurological: Positive: Negative Psychological: Positive: Negative Physical Exam Triage Information Reviewed: Yes Appearance: Well-Appearing, No Pain Distress, Well-Nourished Vital Signs: Initial Vital Signs Temp 98.8 F 05/11/18 07:17 Pulse 62 05/11/18 07:17 Resp 24 05/11/18 07:17 BP 134/71 05/11/18 07:17 Pulse Ox 97 05/11/18 07:17 Vital Signs Reviewed: Yes Eyes: Positive: Conjunctiva Clear ENT: Positive: Hearing grossly normal, Uvula midline. Negative: Nasal congestion, Nasal drainage, Tonsillar swelling, Tonsillar exudate, Trismus, Muffled voice, Hoarse voice, Dental tenderness Neck: Positive: Supple, Nontender, No Lymphadenopathy Respiratory: Positive: No respiratory distress, No accessory muscle use, Crackles - right base, Wheezing Cardiovascular: Positive: RRR Musculoskeletal: Positive: ROM Intact Neurological: Positive: Alert Psychological Exam: Normal Skin Exam: Normal Diagnostics - Radiology No standard instances Radiology Interpretation Completed By: Radiologist Summary of Radiographic Findings: NAD Respiratory Course/Dx - Differential Dx/Diagnosis Provider Diagnosis: Bronchitis, Abnormal CXR (chest x-ray) Discharge - Sign-Out/Discharge Documenting (check all that apply): Patient Departure All imaging exams completed and their final reports reviewed: Yes - Discharge Plan Condition: Stable Disposition: HOME Prescriptions: Azithromycin TAB* [Zithromax TAB*] 250 mg PO DAILY #6 tab Patient Education Materials: Acute Bronchitis (ED), How to Use a Metered-Dose Inhaler and a Spacer (ED) Referrals: Christina Pérez PA [Primary Care Provider] - 2 Days Additional Instructions: your XR is abnormal results pending You may need a CT of your chest we have no old films to compare it to use inhaler as directed - Billing Disposition and Condition Condition: STABLE Disposition: Home
[2018-05-11 09:18] VITALS: BP 127/49
== END 2018-05-11 09:46 | disposition home or self-care (01) ==
LOC: UCCORT 07:08
DX: J45.909 Unspecified asthma, uncomplicated (principal); R91.8 Other nonspecific abnormal finding of lung field; I10 Essential (primary) hypertension; E78.5 Hyperlipidemia, unspecified; Z79.899 Other long term (current) drug therapy; Z88.8 Allergy status to other drugs, medicaments and biological substances; Z79.82 Long term (current) use of aspirin
CPT/HCPCS: 71046; 99203; A9270-GY; G0463